=== PATIENT | female | born 1945 | race Caucasian/White ===

== ENCOUNTER 2017-08-08 08:44 | Day surgery (SDC) | payer MEDICARE, BC, OTHER ==
--- NOTE | 2017-07-18 13:53 | HISTORY AND PHYSICAL E ---
History and Physical NAME: VANDANA QUILES : 1945 AGE: 72Y ADMITTED: 08/08/2017 ROOM: REFERRING PHYSICIAN: HYACINTH CARR M.D. CHIEF COMPLAINT: Colon screening. HISTORY OF PRESENT ILLNESS: The patient presents at this time regarding a colonoscopy/colon screening. The patient did have colon exam in 2015. The patient did have colonoscopy with polypectomy. The patient did have 0.5 cm polyp, injected and resected x3. Again, the patient did have sessile polyp in ascending colon, injected, resected. She stopped her Plavix, aspirin, and ibuprofen. The patient has history of adenomatous polyps. PAST SURGICAL HISTORY: 1. Cholecystectomy, 2000. 2. Cardiac cath, 2010 and 2011. MEDICATIONS: The patient does take: 1. Plavix. 2. Ecotrin. 3. Ibuprofen. 4. Synthroid. 5. Allopurinol. 6. Janumet. 7. Calcium. 8. Metoprolol. 9. Plendil. FAMILY HISTORY: Father is . Mom is . The mom had heart disease. REVIEW OF SYSTEMS: CARDIAC: History of hypertension. GASTROINTESTINAL: Colon screening. ONCOLOGIC/HEMATOLOGIC: Negative. ENDOCRINE: The patient takes Synthroid. PHYSICAL EXAMINATION: VITAL SIGNS: Blood pressure 120/80, pulse 80, respirations 18, temp is 98. HEAD, EYES, EARS, NOSE, THROAT: Normal. NECK: Supple. LUNGS: Clear. ABDOMEN: Soft. NEUROLOGIC: Exam negative. CONCLUSION: 1. Colon screening. 2. History of polyps. PLAN: Colonoscopy. DICTATING PHYSICIAN: ROBERTO ARRINGTON M.D. [id number] Y#: [id number] ID: [id number] JOB#: [id number] ACCT: [id number] cc:HYACINTH CARR M.D., MAHMOUD M.D. >
[~2017-08-08 08:44] MED LIST: EPINEPHRINE INJ 1 MG/10 ML DISP.SYRIN ONE; FENTANYL CITRATE INJ/PF 100 MCG/2 ML AMPUL ONE; FLUMAZENIL INJ 0.5 MG/5 ML VIAL ONE; GLUCAGON,HUMAN RECOMB 1 MG INJ ONE; GLYCOPYRROLATE INJ 0.4 MG/2 ML VIAL ONE; LIDOCAINE 2% JELLY 30 ML TUBE ONE; NALOXONE HCL INJ/PF 0.4 MG/1 ML SDV ONE; ONDANSETRON HCL INJ/PF 4 MG/2 ML SDV ONE
[2017-08-08] MEDS: MIDAZOLAM 2 MG/2 ML INJ ONE ×2 (09:10→09:14)
[2017-08-08 10:25] LABS: ABSOLUTE BASOPHILS # (AUTO) 0.1 10^3/uL (0.0-0.2); ABSOLUTE EOSINOPHILS # (AUTO) 0.1 10^3/uL (0.0-0.6); ABSOLUTE LYMPHOCYTES (AUTO) 1.6 10^3/uL (0.5-4.7); ABSOLUTE MONOCYTES (AUTO) 0.8 10^3/uL (0.1-1.4); BASOPHILS % (AUTO) 0.6 % (0-2); EOSINOPHILS % (AUTO) 1.4 % (0-6); HEMATOCRIT 43.2 % (36.0-47.0); HEMOGLOBIN 14.7 g/dL (12.0-15.5); HGB HCT DIFFERENCE 0.9; LYMPHOCYTES % (AUTO) 16.4 % (13-45); MEAN CORPUSCULAR HEMOGLOBIN 28.8 pg (27.0-33.4); MEAN CORPUSCULAR HGB CONC 34.1 g/dL (32.0-36.0); MEAN CORPUSCULAR VOLUME 85 fl (80-97); RED BLOOD COUNT 5.11 10^6/uL (3.72-5.28); RED CELL DISTRIBUTION WIDTH 13.5 % (11.5-14.0); SEGMENTED NEUTROPHILS % (AUTO) 73.6 % (42-78); WHITE BLOOD COUNT 9.5 10^3/uL (4.0-10.5)
[2017-08-08 10:26] VITALS: BP 120/72
--- NOTE | 2017-08-08 12:01 | OPERATIVE REPORT E ---
Operative Report NAME: VANDANA QUILES : 1945 AGE: 72Y DATE OF SURGERY: 08/08/2017 ROOM: PREOPERATIVE DIAGNOSIS: History of polyps. POSTOPERATIVE DIAGNOSES: 1. Sessile polyp cecum 0.5 cm. 2. Sessile polyp ascending colon 0.5 cm. 3. Occasional diverticulosis sigmoid. PROCEDURE: Colonoscopy. SURGEON: ROBERTO ARRINGTON M.D. TISSUE REMOVED OR ALTERED: Biopsy polyp cecum, biopsy polyp mid ascending colon, mild diverticulosis sigmoid. FINDINGS: Patient did have moderate to large amount of solid stool in the right colon and in the left colon. I felt unsafe proceeding with injection and resection because large amount of stool and possibility of gas and unsafe to do polypectomy at this time. DESCRIPTION: Rectal exam normal. Sigmoid diverticulosis, large amount of stool. Descending colon normal. Transverse colon normal. Ascending colon sessile polyp 0.5 cm, most likely adenoma. Cecum 0.5 cm polyp most likely adenoma cecum polyp. Scope withdrawn from cecum, ascending, transverse, descending, sigmoid all the way to the rectum. CONCLUSION: Sessile polyp mid ascending, sessile polyp cecum, 0.5 cm each, unsafe to proceed with polypectomy because large amount of solid stool. Mild diverticulosis sigmoid. PLAN: Soft diet. Hold Plavix for today. May start Plavix tomorrow. Awaiting biopsy results. Consider followup colonoscopy in a few weeks with better prep. Patient does have history of sessile polyp a year ago where she did have multiple sessile polyps injected, resected. Patient is on Plavix and the polyps were adenoma. She did have cardiac cath 2010, 2011, cholecystectomy 2000. DICTATING PHYSICIAN: ROBERTO ARRINGTON M.D. [id number] PHY#: [id number] ID: [id number] JOB#: [id number] ACCT: [id number] cc:ROBERTO ARRINGTON M.D. >
--- NOTE | 2017-08-08 12:02 | DISCHARGE SUMMARY E ---
Discharge Summary NAME: VANDANA QUILES : 1945 AGE: 72Y ADMITTED: 08/08/2017 DISCHARGED: 08/08/2017 FINAL DIAGNOSES: 1. Right colon polyp. 2. Sigmoid diverticulosis. HISTORY: A 72-year-old female with history of sessile adenoma, polyp a year ago. Today's colonoscopy shows 2 sessile polyps cecum, ascending colon, inadequate prep, large amount of solid stool, and safe to proceed with polypectomy because of large amount of stool. DISCHARGE PLAN: Soft diet. Consider followup colonoscopy next month with better prep. DICTATING PHYSICIAN: ROBERTO ARRINGTON M.D. [id number] PHY#: [id number] ID: [id number] JOB#: [id number] ACCT: [id number] cc:HYACINHT CARR M.D., MAHMOUD M.D. >
== END 2017-08-08 10:40 | disposition home or self-care (01) ==
LOC: END 08:44
PROVIDERS: ATTEND Specialist
PROC: 0DBK8ZX Excision of Ascending Colon, Via Natural or Artificial Opening Endoscopic, Diagnostic (ICD-10-PCS; 2017-08-08)
PROC: 0DBH8ZX Excision of Cecum, Via Natural or Artificial Opening Endoscopic, Diagnostic (ICD-10-PCS; principal; 2017-08-08 09:00)
DX: D12.2 Benign neoplasm of ascending colon (principal); D12.0 Benign neoplasm of cecum; K57.30 Diverticulosis of large intestine without perforation or abscess without bleeding; R97.0 Elevated carcinoembryonic antigen [CEA]; Z79.1 Long term (current) use of non-steroidal anti-inflammatories (NSAID); Z79.02 Long term (current) use of antithrombotics/antiplatelets; Z79.82 Long term (current) use of aspirin; Z79.899 Other long term (current) drug therapy; Z79.84 Long term (current) use of oral hypoglycemic drugs
CPT/HCPCS: 45380; 36415; 82962; 82378; 85025; 88305 ×2; J2250; J3010; J1610; J2405; J0171; J2310; J3490

== ENCOUNTER 2018-03-28 11:00 | Day surgery (SDC) | payer MEDICARE, BC, OTHER ==
[~2018-03-28 11:00] MED LIST changes: +ACETAMINOPHEN 0 MG/0 ML RTUPB IV ONE; +EPHEDRINE SULFATE INJ 50 MG/1 ML AMPULE ONE; -EPINEPHRINE INJ 1 MG/10 ML DISP.SYRIN ONE; -FLUMAZENIL INJ 0.5 MG/5 ML VIAL ONE; -GLUCAGON,HUMAN RECOMB 1 MG INJ ONE; -GLYCOPYRROLATE INJ 0.4 MG/2 ML VIAL ONE; +LIDOCAINE 0.5% INJ-PF (5 MG/ML) 50 ML SDV SUBCUT PRN; -LIDOCAINE 2% JELLY 30 ML TUBE ONE; +MIDAZOLAM 2 MG/2 ML INJ ONE; -NALOXONE HCL INJ/PF 0.4 MG/1 ML SDV ONE; -ONDANSETRON HCL INJ/PF 4 MG/2 ML SDV ONE; +PROPOFOL INJ 200 MG/20 ML VIAL IV ONE
[2018-03-28 11:58] LABS: INTERNATIONAL RATION (INR) 1.12
[2018-03-28 11:59] LABS: PARTIAL THROMBOPLASTIN TIME 34.8 SEC (23.5-35.8)
[2018-03-28 12:16] LABS: POTASSIUM 4.4 mmol/L (3.6-5.0)
[2018-03-28] MEDS ORDERED: PROPOFOL INJ 200 MG/20 ML VIAL IV ONE (13:15)
[2018-03-28] MEDS ORDERED: DIPHENHYDRAMINE HCL 50 MG/ML VIAL IV PRN (13:36)
[2018-03-28] MEDS ORDERED: DEXTROSE 5%-1/2 NORMAL SALINE 1,000 ML IV PRN (14:43)
--- NOTE | 2018-03-28 14:43 | Operative Report ---
Operative Report DATE OF SURGERY: 03/28/18 Operative Report: The risks, benefits and alternatives of the procedure including risks of bleeding, perforation requiring surgery are explained to the patient in detail and informed consent is obtained. Patient was taken back to the operating room and placed in the left, lateral decubital position. Timeout was called. Propofol medication is administered. A rectal examination is done which did not reveal any masses, tears or fissures. An Olympus videoscope was inserted into the patient's rectum. The scope was then carefully advanced all the way to the cecum. The cecum was identified by the usual anatomical landmarks including the ileocecal valve as well as the appendiceal office. Photodocumentation is obtained. The scope was then sequentially pulled back via the various segments of the colon including the ascending colon, hepatic flexure, transverse colon, splenic flexure, descending colon and finally into the rectosigmoid portions of the colon. Retroflexion maneuvers performed. The risks benefits and alternatives of the procedure explained to the patient in detail and informed consent is obtained.A GIF Olympus video scope was inserted into the patient's mouth and hypopharynx, the esophagus is identified intubated and insufflated, the scope was then advanced through the esophagus stomach and duodenum, retroflexion maneuver is done, the esophagus stomach and first and second portions of the duodenum examined PREOPERATIVE DIAGNOSIS: Personal history of polyps. Gastroesophageal reflux disease POSTOPERATIVE DIAGNOSIS: 2 colon polyps as noted removed via snare polypectomy and retrieved. Internal hemorrhoids. Gastritis status post biopsy rule out Helicobacter pylori OPERATION: Colonoscopy with snare polypectomy. EGD with biopsy SURGEON: GISEL CARLOS ANESTHESIA: LMAC TISSUE REMOVED OR ALTERED: As noted above. COMPLICATIONS: None. ESTIMATED BLOOD LOSS: None. INTRAOPERATIVE FINDINGS: As noted above. PROCEDURE: Patient tolerated the procedure well. No immediate postprocedure complications are noted. Patient discharged in good condition. Discharge date 03/28/2018. Discharge diet: Regular. Discharge activity: Regular. 2-3 week follow-up to discuss findings. Patient is instructed to call the office or proceed to the emergency room should there be any further problems or questions. 3-5 year surveillance colonoscopy. We will wait on pathology.
[2018-03-28] MEDS ORDERED: ACETAMINOPHEN 325 MG TABLET PO PRN (14:44)
[2018-03-28] MEDS ORDERED: SIMETHICONE 80 MG TAB.CHEW PO PRN (14:44)
[2018-03-28] MEDS ORDERED: PROMETHAZINE HCL INJ 25 MG/1 ML VIAL INJ PRN (14:45)
[2018-03-28 15:14] VITALS: BP 115/84
--- NOTE | 2018-03-29 00:25 | EKG REPORT ---
SEVERITY:- NORMAL ECG - SINUS RHYTHM : Confirmed by: Mala Linda MD 29-Mar-2018 00:24:11
== END 2018-03-28 15:05 | disposition home or self-care (01) ==
LOC: OROUT 11:00
PROVIDERS: ATTEND Internal Medicine Gastroenterology
DX: K29.50 Unspecified chronic gastritis without bleeding (principal); D12.2 Benign neoplasm of ascending colon; K21.9 Gastro-esophageal reflux disease without esophagitis; K64.8 Other hemorrhoids; Z86.010 Personal history of colon polyps; E78.5 Hyperlipidemia, unspecified; E11.9 Type 2 diabetes mellitus without complications; E07.9 Disorder of thyroid, unspecified; Z79.02 Long term (current) use of antithrombotics/antiplatelets; Z79.899 Other long term (current) drug therapy; Z79.1 Long term (current) use of non-steroidal anti-inflammatories (NSAID); Z79.84 Long term (current) use of oral hypoglycemic drugs; Z79.82 Long term (current) use of aspirin; Z80.0 Family history of malignant neoplasm of digestive organs
CPT/HCPCS: 43239; 45385; 36415; 82947; 84132; 85610; 85730; 88305 ×2; 93005; 93010; J2704; 813; J0131; J2250; J3010; J3490